=== PATIENT | female | born 1955 | race Caucasian/White ===

== ENCOUNTER 2017-01-21 12:07 | Day surgery (SDC) | payer MEDICARE ==
[2017-01-20 09:47] LABS: ASPARTATE AMINO TRANSFERASE 17 U/L (15-37); BLOOD UREA NITROGEN 13 mg/dL (7-18)
[~2017-01-21] VITALS: Ht 162.6 cm; Wt 132.8 kg
[~2017-01-21 12:07] MED LIST: ALLO100T30 PO; ASPI-573 PO; ATOR40TA78 PO; BUPIVACAINE/PF-EPI 0.25% 1:200K ONE; CARV12.52 PO; COLE625T2 PO; DULO30CA2 PO; FENO145T32 PO; FLUT9.9S NS; FURO20TA3 PO; FURO40TA6 PO; GABA300C10 PO; GEMF600T3 PO; GLYB2.5T2 PO; HYDR-3138 PO; INSU100I29 SQ; INSU100I9 SQ-INSULIN; LEVO200T5 PO; LISI-167 PO; OMEP-110 PO; POTA10TA17 PO; POTA20TA91 PO; PRAV40TA2 PO; SULF1TAB3 PO; Will bring list DOS; ZOLP10TA PO; [UNRECOGNIZED DRUG - OTHER] SC
[2017-01-21] MEDS ORDERED: LACTATED RINGERS 1,000 ML IV SCH ×2 (12:39→14:40)
[2017-01-21 13:09] VITALS: BP 121/84
[2017-01-21] MEDS ORDERED: FENTANYL PF 250 MCG/5ML ONE (13:16)
[2017-01-21] MEDS ORDERED: MIDAZOLAM 1 MG/ML, 2ML ONE (13:16)
[2017-01-21] MEDS ORDERED: GLYCOPYRROLATE 0.2MG/1ML ONE (13:58)
[2017-01-21] MEDS ORDERED: PROPOFOL 10 MG/ML, 20ML ONE (13:58)
[2017-01-21] MEDS ORDERED: CEFAZOLIN 1,000 MG ONE (13:58)
[2017-01-21] MEDS ORDERED: ONDANSETRON 2MG/ML, 2ML ONE ×2 (13:58→14:51)
[2017-01-21] MEDS ORDERED: ROCURONIUM 10 MG/ML ONE (13:58)
[2017-01-21] MEDS ORDERED: NEOSTIGMINE 1 MG/ML, 10ML ONE (13:58)
[2017-01-21] MEDS ORDERED: LABETALOL 5MG/ML, 20ML IV PRN (14:00)
[2017-01-21] MEDS ORDERED: hydrALAzine 20 MG/ML, 1ML IV PRN (14:00)
[2017-01-21] MEDS ORDERED: METOCLOPRAMIDE 5 MG/ML, 2ML IV PRN (14:00)
[2017-01-21] MEDS ORDERED: ONDANSETRON 2MG/ML, 2ML IVPush PRN ×2 (14:00→15:00)
[2017-01-21] MEDS ORDERED: HYDROcodone/APAP 7.5-325MG/15ML UDC PO PRN (14:00)
[2017-01-21] MEDS ORDERED: HYDROmorphone 1 MG/ML, 1ML IV PRN (14:00)
[2017-01-21] MEDS ORDERED: ACETAMINOPHEN 325 MG TABLET PO PRN (14:00)
[2017-01-21] MEDS ORDERED: MEPERIDINE/PF 25MG/0.5ML IVPush PRN (14:00)
[2017-01-21] MEDS ORDERED: PROMETHAZINE 25 MG/ML, 1ML IV PRN (14:00)
[2017-01-21] MEDS ORDERED: HYDROmorphone 2 MG/ML, 1ML IVPush PRN (15:00)
[2017-01-21] MEDS ORDERED: HYDROcodone/APAP 5/325 TABLET PO PRN (15:00)
[2017-01-21] MEDS ORDERED: FENTANYL PF 100 MCG/2ML ONE (15:02)
[2017-01-21] MEDS: FENTANYL PF 100 MCG/2ML IV PRN ×2 (15:10→15:36)
[2017-01-21] MEDS ORDERED: INSULIN REGULAR 100 UNITS/ML, 3ML VIAL IV STA (15:16)
[2017-01-21] MEDS ORDERED: INSULIN SINGLE DOSE, ER SQ-INSULIN ONE (15:19)
[2017-01-21] MEDS ORDERED: METOCLOPRAMIDE 5 MG/ML, 2ML ONE (15:26)
[2017-01-21] MEDS ORDERED: KETOROLAC 30 MG/1 ML ONE (15:48)
[2017-01-21] MEDS ORDERED: KETOROLAC 30 MG/1 ML IVPush SCH (16:00)
[2017-01-21] MEDS ORDERED: DIPHENHYDRAMINE 50 MG/ML, 1ML ONE (16:46)
[2017-01-21] MEDS: DIPHENHYDRAMINE 50 MG/ML, 1ML IVPush PRN ×2 (16:48→17:14)
[2017-01-21] MEDS ORDERED: KETOROLAC 30 MG/1 ML IVPush ONE (16:51)
[2017-01-21] MEDS ORDERED: INSULIN REGULAR 100 UNITS/ML, 3ML VIAL IV ONE (16:51)
== END 2017-01-21 19:20 | disposition home or self-care (01) ==
LOC: OUT 12:07
PROVIDERS: ATTEND Thoracic Surgery (Cardiothoracic Vascular Surgery)
DX: K80.10 Calculus of gallbladder with chronic cholecystitis without obstruction (principal); I25.10 Atherosclerotic heart disease of native coronary artery without angina pectoris; Z95.1 Presence of aortocoronary bypass graft; I10 Essential (primary) hypertension; G47.33 Obstructive sleep apnea (adult) (pediatric); K21.9 Gastro-esophageal reflux disease without esophagitis; E03.9 Hypothyroidism, unspecified; J45.909 Unspecified asthma, uncomplicated; E66.01 Morbid (severe) obesity due to excess calories; Z68.43 Body mass index [BMI] 50.0-59.9, adult; E11.40 Type 2 diabetes mellitus with diabetic neuropathy, unspecified; M19.90 Unspecified osteoarthritis, unspecified site; E78.00 Pure hypercholesterolemia, unspecified; Z90.710 Acquired absence of both cervix and uterus; Z96.651 Presence of right artificial knee joint; Z82.61 Family history of arthritis; Z83.3 Family history of diabetes mellitus; Z82.49 Family history of ischemic heart disease and other diseases of the circulatory system; Z82.3 Family history of stroke; F17.210 Nicotine dependence, cigarettes, uncomplicated
CPT/HCPCS: 36415; 47562; 80053; 82962; 85025; 88304; J0690; J1200; J1885; J2250; J2405; J2704; J2710; J2765; J3010; J7120; J3490